=== PATIENT | female | born 1950 | race Caucasian/White ===

== ENCOUNTER → 2017-02-01 | Outpatient (CLI) | payer BC ==
[~2017-02-01] MED LIST: B-COCAP2 PO; BIOTPOW17 PO; CLTP PO; DYZ PO; FLAXSEED OIL PO; MAGN200T3 PO; MISCTAB26 PO; MULT-506 PO; NAPR1TAB9 PO; OMEG12006 PO; [UNRECOGNIZED DRUG - OTHER] PO
--- NOTE | 2017-02-01 12:48 | MAMMOGRAPHY REPORT ---
BILATERAL DIGITAL SCREENING MAMMOGRAM WITH CAD: 02/01/2017 CLINICAL HISTORY: Routine screening. Patient has no complaints. TECHNIQUE: Current study was also evaluated with a Computer Aided Detection (CAD) system. Bilatera l CC and MLO views were obtained. COMPARISON: Comparison is made to exams dated: 01/27/2016 mammogram, 01/25/2015 mammogram, 01/22/2014 mammogram, 01/20/2013 mammogram, 01/15/2012 mammogram, and 01/12/2011 mammogram - [facility] enter. BREAST COMPOSITION: The tissue of both breasts is heterogeneously dense, which may obscure small ma sses. FINDINGS: No suspicious masses, calcifications, or areas of architectural distortion are noted in e ither breast. There has been no significant interval change compared to prior exams. Bilateral pieter gn-appearing calcifications are not significantly changed, including grouped calcifications in the l eft lower inner quadrant which are stable dating back to at least the 2014 exam. IMPRESSION: ACR BI-RADS CATEGORY 2: BENIGN There is no mammographic evidence of malignancy. A 1 year screening mammogram is recommended. The p atient will receive written notification of the results. Approximately 10% of breast cancers are not detected with mammography. A negative mammographic repor t should not delay biopsy if a clinically suggestive mass is present. Kymberly Ayers M.D. /:02/01/2017 12:16:40 Test Skein Winder: Padmini [facility] letter sent: Normal 1/2 BI-RADS Code: ACR BI-RADS Category 2: Benign
== END | disposition home or self-care (01) ==
LOC: C.MAMM 09:29
PROVIDERS: ATTEND Obstetrics & Gynecology
DX: Z12.31 Encounter for screening mammogram for malignant neoplasm of breast (principal)

== ENCOUNTER → 2017-03-22 | Outpatient (CLI) | payer BC | END | disposition home or self-care (01) | LOC: C.MAMM 08:11 | PROVIDERS: ATTEND Internal Medicine Geriatric Medicine | DX: M85.851 Other specified disorders of bone density and structure, right thigh (principal); M85.852 Other specified disorders of bone density and structure, left thigh; M85.88 Other specified disorders of bone density and structure, other site ==

== ENCOUNTER → 2018-02-04 | Outpatient (CLI) | payer BC ==
--- NOTE | 2018-02-05 13:02 | MAMMOGRAPHY REPORT ---
BILATERAL DIGITAL SCREENING MAMMOGRAM TOMOSYNTHESIS WITH CAD: 02/04/2018 CLINICAL HISTORY: Routine screening examination. TECHNIQUE: Breast tomosynthesis in addition to standard 2D mammography was performed. Current study was also evaluated with a Computer Aided Detection (CAD) system. COMPARISON: Comparison is made to exams dated: 02/01/2017 mammogram, 01/27/2016 mammogram, 01/25/2015 m ammogram, 01/22/2014 mammogram, 01/20/2013 mammogram, and 01/15/2012 mammogram - [facility] nter. BREAST COMPOSITION: The tissue of both breasts is heterogeneously dense, which may obscure small mas ses. FINDINGS: There is a possible area of architectural distortion in the upper outer posterior right br east, that could represent normal overlapping tissue although additional spot compression tomosynthes is views and possible ultrasound are recommended. No other suspicious mass, architectural distortion or cluster of microcalcifications is seen. IMPRESSION: ACR BI-RADS CATEGORY 0: INCOMPLETE EVALUATION: NEED ADDITIONAL IMAGING EVALUATION The possible area of architectural distortion in the upper outer posterior right breast needs additio nal evaluation. The patient will be called to schedule an appointment. Approximately 10% of breast cancers are not detected with mammography. A negative mammographic report should not delay biopsy if a clinically suggestive mass is present. Felicity Morris M.D. ay/:02/04/2018 14:49:47 Side Framer: Sue ALSTON)(Maurice), [facility] letter sent: Addl Imaging 0 BI-RADS Code: ACR BI-RADS Category 0: Incomplete Evaluation: Need Additional Imaging Evaluation
== END | disposition home or self-care (01) ==
LOC: C.MAMM 09:59
PROVIDERS: ATTEND Obstetrics & Gynecology
DX: Z12.31 Encounter for screening mammogram for malignant neoplasm of breast (principal)

== ENCOUNTER → 2018-02-11 | Outpatient (CLI) | payer BC ==
--- NOTE | 2018-02-12 07:48 | MAMMOGRAPHY REPORT ---
UNILATERAL RIGHT DIGITAL DIAGNOSTIC MAMMOGRAM TOMOSYNTHESIS AND TARGETED RIGHT ULTRASOUND: 02/11/2018 CLINICAL HISTORY: 67-year-old woman called back from screening mammography for a possible area of arc hitectural distortion in the superior posterior right breast, best seen on the MLO view, thought to p roject laterally on the cc view. Family history of breast cancer = niece. Patient has a personal hi story of [employer] cancer. TECHNIQUE: Spot compression tomosynthesis right CC, MLO and exaggerated lateral CC views were obtaine d. COMPARISON: Comparison is made to exams dated: 02/04/2018 mammogram, 02/01/2017 mammogram, 01/27/2016 m ammogram, 01/25/2015 mammogram, 01/22/2014 mammogram, and 01/15/2012 mammogram - [facility] nter. BREAST COMPOSITION: The tissue of the right breast is heterogeneously dense, which may obscure small masses. FINDINGS: There is no definite persistent architectural distortion on any of the supplemental spot co mpression tomosynthesis views of the right breast. No obvious mass, asymmetry or suspicious calcific ations. Further evaluation with ultrasound was performed. Targeted ultrasound was performed throughout the superior and lateral right breast. Sonographically normal tissue and a few areas of benign-appearing duct ectasia are identified, without evidence of a suspicious solid or cystic mass. No architectural distortion is appreciated in real-time ultrasound scanning. IMPRESSION: ACR-BI-RADS CATEGORY 3: PROBABLY BENIGN, TARGETED ULTRASOUND ACR-BI-RADS CATEGORY 3: PRO BABLY BENIGN There is no definite persistent mammographic distortion on the supplemental spot compression tomosynt hesis images, and no suspicious sonographic correlate identified. Given the conspicuous nature of th e possible distortion on the initial screening mammogram, and dense breasts, a short interval follow- up right diagnostic tomosynthesis mammogram and possible ultrasound is recommended to ensure stabilit y in 6 months. These results and recommendations were discussed with the patient at the time of the exam. Approximately 10% of breast cancers are not detected with mammography. A negative mammographic report should not delay biopsy if a clinically suggestive mass is present. Felicity Morris M.D. ay/:02/11/2018 14:20:57 Store Management Trainee: Padmini QUINTERO(R)(Maurice), [facility] letter sent: Follow Up Recommended 3 BI-RADS Code: ACR-BI-RADS Category 3: Probably Benign Ultrasound BI-RADS: ACR-BI-RADS Category 3: Pr obably Benign
== END | disposition home or self-care (01) ==
LOC: C.MAMM 13:31
PROVIDERS: ATTEND Obstetrics & Gynecology
DX: R92.8 Other abnormal and inconclusive findings on diagnostic imaging of breast (principal)

== ENCOUNTER → 2018-02-26 | Outpatient (CLI) | payer BC ==
[2018-02-26 11:08] LABS: BASO % 0.8 %; BASO ABS # 0.04 K/uL (0-0.2); EOS % 4.6 %; EOS ABS # 0.22 K/uL (0-0.5); HEMATOCRIT 43.5 % (37-47); HEMOGLOBIN 14.5 g/dL (12.0-16.0); IG# 0.01 K/uL (0.00-0.02); LYMPH % 28.6 %; LYMPH ABS # 1.36 K/uL (1.2-3.4); MEAN CELL VOLUME 92.8 fL (80-100); MEAN CORPUSCULAR HEMOGLOBIN 30.9 pg (25-34); MEAN CORPUSCULAR HGB CONC 33.3 g/dl (32-36); MEAN PLATELET VOLUME 11.4 fL (7.4-10.4); MONO % 12.4 %; MONO ABS # 0.59 K/uL (0.11-0.59); NEUT % 53.4 %; NEUT ABS # 2.54 K/uL (1.4-6.5); PLATELET COUNT 184 K/uL (130-400); RED CELL DISTRIBUTION WIDTH CV 12.4 % (11.5-14.5); RED CELL DISTRIBUTION WIDTH SD 41.7 fL (36.4-46.3); WHITE BLOOD COUNT 4.76 K/uL (4.8-10.8)
[2018-02-26 14:46] LABS: BLOOD UREA NITROGEN 30 mg/dl (7-18); CALCIUM 9.5 mg/dl (8.5-10.1); CARBON DIOXIDE 30 mmol/L (21-32); CREATININE 1.28 mg/dl (0.60-1.20); GLUCOSE 86 mg/dl (70-99); POTASSIUM 4.1 mmol/L (3.5-5.1); SODIUM 138 mmol/L (136-145)
[2018-02-26 14:57] LABS: CHOLESTEROL 213 mg/dl (0-200); LDL CHOLESTEROL CALCULATED 104 mg/dl
== END | disposition home or self-care (01) ==
LOC: C.LABBC 09:07
PROVIDERS: ATTEND Internal Medicine Geriatric Medicine
DX: E78.5 Hyperlipidemia, unspecified (principal); M85.80 Other specified disorders of bone density and structure, unspecified site; M19.90 Unspecified osteoarthritis, unspecified site; H81.09 Meniere's disease, unspecified ear

== ENCOUNTER → 2018-03-04 | Outpatient (CLI) | payer BC ==
--- NOTE | 2018-03-04 13:14 | DIAGNOSTIC IMAGING REPORT ---
EXAMINATION: RENAL ULTRASOUND CLINICAL HISTORY: R79.89 Elevated serum creatinineULTR COMPARISON STUDY: CT scan dated 02/21/2013 FINDINGS: The right kidney measures 9.5 cm. The left kidney measures 9.5 cm. There is no evidence of hydronephrosis. There are no renal masses. There is mild renal cortical thinning. No bladder abnormalities are visualized. Bilateral ureteral jets were visualized. IMPRESSION : 1. Mild renal cortical thinning 2. No renal masses identified 3. No evidence of hydronephrosis Electronically signed by: Khang Huizar M.D. 03/04/2018 1:12 PM Dictated Date/Time: 03/04/2018 1:11 PM
== END | disposition home or self-care (01) ==
LOC: C.ULTR 12:11
PROVIDERS: ATTEND Internal Medicine Geriatric Medicine
DX: R79.89 Other specified abnormal findings of blood chemistry (principal)

== ENCOUNTER → 2018-06-24 | Outpatient (CLI) | payer BC ==
[2018-06-24 14:37] LABS: ALBUMIN 3.7 gm/dl (3.4-5.0); BLOOD UREA NITROGEN 32 mg/dl (7-18); CARBON DIOXIDE 34 mmol/L (21-32); GLUCOSE 86 mg/dl (70-99); PHOSPHORUS 3.7 mg/dl (2.5-4.9); POTASSIUM 3.6 mmol/L (3.5-5.1); SODIUM 140 mmol/L (136-145)
== END | disposition home or self-care (01) ==
LOC: C.LABBC 10:05
PROVIDERS: ATTEND Internal Medicine Nephrology
DX: N18.3 Chronic kidney disease, stage 3 (moderate) (principal)